=== PATIENT | female | born 1990 | race Two or more races ===

== ENCOUNTER 2020-07-18 19:58 | Emergency (ER) | payer OTHER ==
[~2020-07-18] VITALS: Ht 160 cm; Wt 58.5 kg
== END 2020-07-18 22:42 | disposition home or self-care (01) ==
LOC: ER 19:58
DX: K29.60 Other gastritis without bleeding (principal); R11.2 Nausea with vomiting, unspecified; F10.10 Alcohol abuse, uncomplicated; Y90.9 Presence of alcohol in blood, level not specified